=== PATIENT | female | born 1985 | race Caucasian/White ===

== ENCOUNTER 2023-08-27 23:09 | Emergency (ER) | payer BC ==
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
[2023-08-28] MEDS: IBUPROFEN 600 MG TABLET PO STA (00:08)
[2023-08-28] MEDS: BACITRACIN ZINC OINT 1 PACKET TOP STA (00:09)
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
[2023-08-28] MEDS: TETANUS/DIPHTHERIA/PERTUSSIS 0.5 ML SYRINGE IM ONE (00:20)
[2023-08-28 02:06] VITALS: BP 136/93; O2SAT 100
== END 2023-08-28 02:05 | disposition home or self-care (01) ==
LOC: ED 23:09
DX: T23.221A Burn of second degree of single right finger (nail) except thumb, initial encounter (principal); W39.XXXA Discharge of firework, initial encounter; Z23 Encounter for immunization
CPT/HCPCS: 73130; 90471; 90715; 99283; A9270